=== PATIENT | female | born 2000 | race Caucasian/White ===

== ENCOUNTER 2019-04-04 18:44 | Emergency (ER) | payer OTHER, SELFPAY ==
[2019-04-04 19:23] LABS: #Basophils 0.1 thou/uL (0.0-0.2); #Lymphocytes 0.9 thou/uL (1.20-3.40); #Neutrophils 8.5 thou/uL (1.40-6.50); %Basophils 1.1 % (0.0-1.0); %Eosinophils 0.1 % (0.0-10.0); %Lymphocytes 8.5 % (28.0-48.0); %Monocytes 9.2 % (0.0-4.0); %Neutrophils 81.1 % (31.0-61.0); Hemoglobin 9.1 g/dL (12.0-16.0); Mean Corpuscular HGB CONC 32.2 g/dL (32.0-36.0); Mean Corpuscular Hemoglobin 25.5 pg (25.0-35.0); Mean Corpuscular Volume 79.3 fL (78.0-98.0); Mean Platelet Volume 7.4 fL (7.4-10.4); Platelet Count 249 thou/uL (130-400); RBC Distribution Width 13.3 % (11.5-14.5); Red Blood Cell (RBC) Count 3.56 mill/uL (4.00-5.20); White Blood Cell (WBC) Count 10.5 thou/uL (4.8-10.8)
[2019-04-04] MEDS ORDERED: Acetaminophen 500 MG TAB ONE (19:34)
[2019-04-04 19:37] LABS: ALT (SGPT) 10 U/L (8-55); AST (SGOT) 8 U/L (5-34); Albumin 3.6 g/dL (3.5-5.0); Alkaline Phosphatase 92 U/L (40-100); Anion Gap 15 mmol/L (10-20); BUN (Urea Nitrogen) 6 mg/dL (7.0-18.7); Bilirubin, Total 0.6 mg/dL (0.2-1.2); Calc. Creatinine Clearance 0 mL/min (70-130); Calcium 9.5 mg/dL (7.8-10.44); Carbon Dioxide 18 mmol/L (22-29); Chloride 104 mmol/L (98-107); Estimated GFR-MDRD Greater than 90; Globulin 3.8 g/dL (2.4-3.5); Glucose 188 mg/dL (70-105); Potassium 3.1 mmol/L (3.5-5.1); Protein, Total 7.4 g/dL (6.0-8.3); Sodium 134 mmol/L (136-145)
[2019-04-04 19:43] LABS: Bilirubin Moderate (Negative); Blood, Urine Negative (Negative); Clarity Slightly Cloudy (Clear); Glucose, Urine (Dipstick) 500 mg/dL (Negative); Leukocyte Negative (Negative); Nitrite Negative (Negative); Protein, Urine (Dipstick) 100 mg/dL (Neg-Trace); Urobilinogen > or = 8.0 mg/dL (Less than 2)
[2019-04-04 19:48] LABS: Bacteria/HPF 1+ HPF (None Seen); Broad Cast None Seen LPF (None Seen); Cellular Cast None Seen LPF (None Seen); Epithelial Cast None Seen LPF (None Seen); Fatty Cast None Seen LPF (None Seen); Mucous/LPF 2+ LPF (<2+); Other Casts None Seen LPF (None Seen); Oval Fat Bodies/HPF None Seen HPF (None Seen); RBC/HPF None Seen HPF (0-3); Red Blood Cell Cast None Seen LPF (None Seen); Renal Epithelial None Seen HPF (None Seen); Sperm/HPF None Seen HPF (None Seen); Transitional Epithelial None Seen HPF (None Seen); Trichomonas/HPF None Seen HPF (None Seen); Unclassified Crystals None Seen HPF (None Seen); WBC/HPF 0-3 HPF (0-3); Waxy Cast None Seen LPF (None Seen); White Blood Cell Cast None Seen LPF (None Seen); Yeast-Budding None Seen HPF (None Seen); Yeast-Hyphae None Seen HPF (None Seen)
[2019-04-04 19:49] LABS: Calcium Oxalate Crystals None Seen HPF (None Seen); Triple Phosphate Crystal None Seen HPF (None Seen)
[2019-04-04] MEDS ORDERED: Oseltamivir 75 MG CAP ONE (20:03)
[2019-04-04] MEDS ORDERED: Potassium Chloride 20 MEQ TAB ONE ×2 (20:03→20:05)
--- NOTE | 2019-04-04 23:23 | RAD ---
[place] CHEST The heart is normal in size and the lungs are clear. No infiltrate or effusion was seen. There is no sign of pneumonia. The mediastinum appears normal. IMPRESSION: No acute findings. POS: HOME
== END 2019-04-04 22:12 | disposition home or self-care (01) ==
LOC: BURERS 18:44
DX: O99.513 Diseases of the respiratory system complicating pregnancy, third trimester (principal); J11.1 Influenza due to unidentified influenza virus with other respiratory manifestations; O99.283 Endocrine, nutritional and metabolic diseases complicating pregnancy, third trimester; E87.6 Hypokalemia; O24.410 Gestational diabetes mellitus in pregnancy, diet controlled; Z3A.33 33 weeks gestation of pregnancy
CPT/HCPCS: 51701; 71045; 80053; 81003; 81015; 83605; 84443; 85025; 87040; 87081; 87430; 87804; 93005; 94760; 96360; 96361; A4353